=== PATIENT | male | born 1985 ===

== ENCOUNTER → 2017-04-28 | Outpatient (CLI) | payer OTHER ==
[~2017-04-28] VITALS: Ht 180.3 cm; Wt 85.5 kg
[~2017-04-28] MED LIST: AMOX-CLAV PO; FLUC100T PO; FLUC200T PO
[2017-04-28 14:40] VITALS: BP 136/77
== END | disposition home or self-care (01) ==
LOC: SRCNTR 13:41
PROVIDERS: ATTEND Internal Medicine Critical Care Medicine
DX: J45.909 Unspecified asthma, uncomplicated (principal); J18.8 Other pneumonia, unspecified organism
CPT/HCPCS: G0463